=== PATIENT | female | born 1955 ===

== ENCOUNTER 2021-12-01 09:10 | Outpatient (CLI) | payer MEDICARE, OTHER | END 2021-12-01 09:11 | disposition home or self-care (01) | LOC: BICMAMMO 09:10 | PROVIDERS: ATTEND Family Medicine | DX: Z12.31 Encounter for screening mammogram for malignant neoplasm of breast (principal); Z13.820 Encounter for screening for osteoporosis; M85.89 Other specified disorders of bone density and structure, multiple sites | CPT/HCPCS: 77063; 77067; 77080 ==